=== PATIENT | male | born 1945 | race Caucasian/White ===

== ENCOUNTER 2017-05-04 14:24 | Inpatient (IN) | payer SELFPAY ==
[~2017-05-04] VITALS: Ht 160 cm; Wt 57.6 kg
[~2017-05-04 14:24] MED LIST: IOHEXOL-300 100 ML BOTTLE ONE; SODIUM CHLORIDE 0.9% 10ML VIAL ONE
[2017-05-04] MEDS ORDERED: ONDANSETRON HCL 4MG/2ML VIAL IV STA (14:57)
[2017-05-04] MEDS ORDERED: SODIUM CHLORIDE 0.9% 1,000 ML IV ONE (14:57)
[2017-05-04] MEDS ORDERED: MORPHINE SULFATE 4 MG/ML CPJ (NOT FOR IM USE) IV STA (14:57)
[2017-05-04 15:40] LABS: BASOPHILS % 0.2 % (0.0-2.0); EOSINOPHILS % 0.1 % (0.0-5.0); HEMATOCRIT. 38.7 % (42.0-52.0); HEMOGLOBIN. 13.1 g/dL (14.0-18.0); LYMPHOCYTES % 9.9 % (20.0-50.0); MEAN CORPUSCULAR HEMOGLOBIN 29.8 pg (28.0-32.0); MEAN CORPUSCULAR VOLUME 87.8 fL (80.0-94.0); MEAN PLATELET VOLUME 7.3 fl (7.4-10.4); NEUTROPHILS % 78.8 % (40.0-76.0); PLATELET 500 x1000/uL (130-400); RED BLOOD CELL COUNT 4.41 mill/uL (4.7-6.1); RED CELL DISTRIBUTION WIDTH 14.2 % (11.6-14.6)
[2017-05-04 15:45] LABS: INR 1.1; PARTIAL THROMBOPLASTIN TIME 29.9 sec (24.0-34.0)
[2017-05-04 15:48] LABS: CARBON DIOXIDE 39 mEq/L (21-32); CHLORIDE 86 mEq/L (98-107)
[2017-05-04 15:54] LABS: TROPONIN I < 0.02 ng/mL (0.00-0.04)
[2017-05-04] MEDS ORDERED: KCL 20MEQ/100ML PREMIX 100 ML IV ONE (16:00)
[2017-05-04 16:49] LABS: CLARITY URINE CLOUDY (CLEAR); COLOR URINE DARK YELLOW (YELLOW); GLUCOSE URINE NEGATIVE (NEGATIVE); KETONES URINE TRACE (NEGATIVE); LEUKOCYTE ESTERASE URINE NEGATIVE (NEGATIVE); NITRITE URINE NEGATIVE (NEGATIVE); OCCULT BLOOD URINE TRACE (NEGATIVE); PROTEIN URINE 1+ (NEGATIVE); SPECIFIC GRAVITY URINE 1.028 (1.005-1.030)
[2017-05-04 20:00] VITALS: BP 135/91
[2017-05-04 20:10] VITALS: BP 135/91
[2017-05-05] VITALS: BP 128/92
[2017-05-05 04:00] VITALS: BP 114/74
[2017-05-05] MEDS: METOCLOPRAMIDE HCL 10MG/2ML VIAL IV SCH ×3 (06:06→18:14)
[2017-05-05 06:37] LABS: CHLORIDE 93 mEq/L (98-107)
[2017-05-05 06:45] LABS: CARBON DIOXIDE 33 mEq/L (21-32)
[2017-05-05 07:09] LABS: BASOPHILS % 0.3 % (0.0-2.0); EOSINOPHILS % 0.6 % (0.0-5.0); HEMATOCRIT. 32.9 % (42.0-52.0); HEMOGLOBIN. 11.2 g/dL (14.0-18.0); LYMPHOCYTES % 11.9 % (20.0-50.0); MEAN CORPUSCULAR HEMOGLOBIN 29.9 pg (28.0-32.0); MEAN PLATELET VOLUME 7.8 fl (7.4-10.4); MONOCYTES % 10.8 % (2.0-8.0); NEUTROPHILS % 76.4 % (40.0-76.0); PLATELET 390 x1000/uL (130-400); RED BLOOD CELL COUNT 3.74 mill/uL (4.7-6.1); RED CELL DISTRIBUTION WIDTH 14.1 % (11.6-14.6)
[2017-05-05 08:00] VITALS: BP 129/89
[2017-05-05] MEDS ORDERED: POTASSIUM CHLORIDE 20MEQ TABLET SR PO NR (08:15)
[2017-05-05 11:51] VITALS: BP 119/75
[2017-05-05 16:00] VITALS: BP 119/87
[2017-05-05 20:00] VITALS: BP 129/92
[2017-05-06] VITALS: BP 134/97
[2017-05-06] MEDS: METOCLOPRAMIDE HCL 10MG/2ML VIAL IV SCH ×5 (00:49→23:49)
[2017-05-06 04:00] VITALS: BP 130/94
[2017-05-06 08:00] VITALS: BP 122/94
[2017-05-06 12:00] VITALS: BP 129/87
[2017-05-06] MEDS: ONDANSETRON HCL 4MG/2ML VIAL IV PRN (13:39)
[2017-05-06 16:00] VITALS: BP 126/85
[2017-05-06 20:00] VITALS: BP 128/85
[2017-05-06] MEDS: MORPHINE SULFATE 2 MG/ML CPJ (NOT FOR IM USE) IV PRN (20:49)
[2017-05-07] VITALS: BP 109/75
[2017-05-07 04:00] VITALS: BP 123/81
[2017-05-07] MEDS: METOCLOPRAMIDE HCL 10MG/2ML VIAL IV SCH ×3 (05:32→17:25)
[2017-05-07 06:38] LABS: INR 1.1; PARTIAL THROMBOPLASTIN TIME 31.9 sec (24.0-34.0); PROTHROMBIN TIME 11.7 sec
[2017-05-07 07:13] LABS: BASOPHILS % 0.1 % (0.0-2.0); EOSINOPHILS % 0.3 % (0.0-5.0); HEMOGLOBIN. 12.2 g/dL (14.0-18.0); LYMPHOCYTES % 14.2 % (20.0-50.0); MEAN CORPUSCULAR HEMOGLOBIN 29.9 pg (28.0-32.0); MEAN CORPUSCULAR VOLUME 88.2 fL (80.0-94.0); MEAN PLATELET VOLUME 7.6 fl (7.4-10.4); NEUTROPHILS % 75.4 % (40.0-76.0); PLATELET 307 x1000/uL (130-400); RED BLOOD CELL COUNT 4.08 mill/uL (4.7-6.1); RED CELL DISTRIBUTION WIDTH 14.1 % (11.6-14.6)
[2017-05-07 08:00] VITALS: BP 120/84
[2017-05-07 10:02] LABS: CARBON DIOXIDE 34 mEq/L (21-32); CHLORIDE 93 mEq/L (98-107)
[2017-05-07 12:00] VITALS: BP 151/92
[2017-05-07] MEDS ORDERED: POTASSIUM CHLORIDE 20MEQ TABLET SR PO SCH (13:15)
[2017-05-07] MEDS: MORPHINE SULFATE 2 MG/ML CPJ (NOT FOR IM USE) IV PRN ×2 (13:19→17:57)
[2017-05-07] MEDS ORDERED: NA PHOS,M-B/NA PHOS,DI-BA ENEMA 118ML PR PRN (13:30)
[2017-05-07] MEDS ORDERED: DOCUSATE SODIUM 100MG CAPSULE PO PRN (13:30)
[2017-05-07] MEDS ORDERED: GUAIFENESIN 200MG/10ML SUGAR FREE UDC PO PRN (13:30)
[2017-05-07] MEDS ORDERED: ACETAMINOPHEN 650MG/20.3ML UDC GT PRN (13:30)
[2017-05-07] MEDS ORDERED: ACETAMINOPHEN 325MG TABLET PO PRN (13:30)
[2017-05-07] MEDS ORDERED: MAGNESIUM/ALUMINUM HYDROXIDE/SIMETHICONE 30ML UDC PO PRN (13:30)
[2017-05-07] MEDS ORDERED: DIPHENHYDRAMINE 50MG/ML VIAL IV PRN (13:30)
[2017-05-07] MEDS ORDERED: CLONIDINE 0.1MG TABLET PO PRN (13:30)
[2017-05-07] MEDS ORDERED: HYDROCODONE/ACETAMINOPHEN 5/325MG TABLET PO PRN (13:30)
[2017-05-07] MEDS ORDERED: ACETAMINOPHEN 650MG SUPP PR PRN (13:30)
[2017-05-07] MEDS ORDERED: IPRATROPIUM/ALBUTEROL 0.5-3(2.5)MG/3ML NEB INH PRN (13:30)
[2017-05-07] MEDS: ONDANSETRON HCL 4MG/2ML VIAL IV PRN (14:06)
[2017-05-07] MEDS: SODIUM CHLORIDE 0.9% INJ 3ML FLUSH IVF SCH ×2 (15:39→21:35)
[2017-05-07 16:00] VITALS: BP 127/92
[2017-05-07 20:00] VITALS: BP 111/79
[2017-05-07] MEDS: PANTOPRAZOLE SODIUM 40 MG/VIAL IV SCH (21:33)
[2017-05-07] MEDS: DEXT 5%/0.9% NACL 1,000 ML IV SCH (21:35)
[2017-05-08] VITALS (8 sets, daily range): BP systolic 104–151; BP diastolic 68–92
[2017-05-08] MEDS: METOCLOPRAMIDE HCL 10MG/2ML VIAL IV SCH ×3 (00:58→13:29)
[2017-05-08] MEDS: SODIUM CHLORIDE 0.9% INJ 3ML FLUSH IVF SCH ×2 (05:25→13:32)
[2017-05-08] MEDS: PANTOPRAZOLE SODIUM 40 MG/VIAL IV SCH (09:45)
[2017-05-08] MEDS: ONDANSETRON HCL 4MG/2ML VIAL IV PRN (09:45)
[2017-05-08] MEDS: MORPHINE SULFATE 2 MG/ML CPJ (NOT FOR IM USE) IV PRN (09:45)
[2017-05-08] MEDS: DEXT 5%/0.9% NACL 1,000 ML IV SCH (09:47)
[2017-05-08 16:10] LABS: CARBON DIOXIDE 31 mEq/L (21-32); CHLORIDE 101 mEq/L (98-107)
[2017-05-09] MEDS ORDERED: FAMOTIDINE 20MG/2ML VIAL IV SCH (09:00)
== END 2017-05-08 17:55 | disposition home or self-care (01) ==
LOC: ER 14:24 → 6WST 18:21 → EDBEDREQ 18:22 → EDBEDREQSVC 18:22 → ENRESERV 18:29 → 6WST 05-05 01:15
PROVIDERS: ADMIT Family Medicine; ATTEND Family Medicine
PROC: 0F903ZX Drainage of Liver, Percutaneous Approach, Diagnostic (ICD-10-PCS; principal; 2017-05-07)
DX: K76.89 Other specified diseases of liver (principal); E86.0 Dehydration; E87.6 Hypokalemia; K40.20 Bilateral inguinal hernia, without obstruction or gangrene, not specified as recurrent; N40.0 Benign prostatic hyperplasia without lower urinary tract symptoms
CPT/HCPCS: 36415; 71010; 74177; 76700; 76942; 80048; 80053; 81001; 82105; 82378; 83690; 84132; 84484; 85025; 85610; 85730; 86301; 86645; 86850; 86900; 87070; 87205; 92610; 93005; 96361; 96374; 96375; 99285; A4216; C9113; J2270; J2405; J2765; J3480; J7030; J7042; Q9967